=== PATIENT | male | born 1945 | race Caucasian/White ===

== ENCOUNTER 2021-06-16 17:44 | Emergency (ER) | payer MEDICARE, OTHER ==
[~2021-06-16] VITALS: Ht 180.3 cm; Wt 80.4 kg
[2021-06-16 18:02] VITALS: BP 118/71
[2021-06-16 18:39] LABS: BASO % 1 % (0-3); EOS % 0 % (0-3); HEMATOCRIT 47.3 % (39.0-53.0); HEMOGLOBIN 15.8 g/dL (13.0-17.5); LYMPH # 0.9 x10^3/uL (1.0-4.8); LYMPH % 18 % (24-48); MEAN CORPUSCULAR HEMOGLOBIN 32 pg (25-35); MEAN CORPUSCULAR HGB CONC 33 g/dL (31-37); MEAN CORPUSCULAR VOLUME 95 fL (79-100); MONO # 0.5 x10^3/uL (0.0-1.1); MONO % 10 % (0-9); NEUT # 3.6 x10^3uL (1.8-7.7); NEUT % 72 % (31-73); PLATELET COUNT 119 x10^3/uL (140-400); RED BLOOD COUNT 4.98 x10^6/uL (4.30-5.70); RED CELL DISTRIBUTION WIDTH 13.6 % (11.5-14.5)
[2021-06-16 18:41] LABS: CALCIUM 8.1 mg/dL (8.5-10.1); CREATININE 1.3 mg/dL (0.7-1.3); POTASSIUM 4.2 mmol/L (3.5-5.1)
[2021-06-16 18:47] LABS: ALBUMIN 3.2 g/dL (3.4-5.0); ALBUMIN/GLOBULIN RATIO 0.9 (1.0-1.7); TOTAL BILIRUBIN 0.4 mg/dL (0.2-1.0); TOTAL PROTEIN 6.6 g/dL (6.4-8.2)
--- NOTE | 2021-06-16 18:51 | RAD ---
AP chest. HISTORY: Cough AP view was taken of the chest. Heart is normal in size. There is no pleural effusion. There is a sug gestion of a slight right upper lobe infiltrate. No other definite infiltrates are noted. IMPRESSION: 1. Slight right upper lobe infiltrate. Electronically signed by: Trever León MD (06/16/2021 6:49 PM) [facility]
--- NOTE | 2021-06-16 21:45 | PHYS DOC ---
Past History Past Surgical History: No Surgical History General Adult EDM: Chief Complaint: FATIGUE HPI: HPI: ".. I was diagnosis of COVID on Monday.. had felt bad on .. but the problem is I can't force myself to drink... I was thinking I needed some IV fluids.. My a nurse.. she told me to come. .. in. " ".. I ve been here 5 hrs just waiting to get back to this room... " Patient is a 76 year old male retired who presents with complaints of malaise, myalgia and arthralgia since . Patient had refused to get COVID vaccination. Patient's denies any shortness of breath or chest pain. Denies any loss of taste or smell. His main complaint is the feels like he does not want to drink fluids. Patient sats were normal range on walking to [employer] Pt. denies and fever or chills currently. Does have a nagging cough. C/o fatigue. Review of Systems: Review of Systems: Constitutional: History fever or chills which now resolved Eyes: Denies change in visual acuity HENT: Some history of nasal congestion now resolved Respiratory: Some history of cough now resolved, denies shortness of breath Cardiovascular: Denies chest pain or edema GI: Denies abdominal pain, nausea, vomiting, bloody stools or diarrhea : Denies dysuria Musculoskeletal: Some history of malaise myalgia arthralgia currently resolved Integument: Denies rash Neurologic: Denies headache, focal weakness or sensory changes Endocrine: Denies polyuria or polydipsia Lymphatic: Denies swollen glands Psychiatric: Denies depression or anxiety Family History: Family History: Noncontributory to presentation Current Medications: Current Meds: See nursing for home meds Allergies: Allergies: Allergies Coded Allergies Type Severity Reaction Last Updated Verified No Known Drug Allergies 06/16/21 No Physical Exam: PE: Constitutional: Well developed, well nourished, no acute distress, non-toxic singh earance. [] HENT: Normocephalic, atraumatic, bilateral external ears normal, oropharynx moist, no oral exudates, nose normal. [] Eyes: PERRLA, EOMI, conjunctiva normal, no discharge. [] Neck: Normal range of motion, no tenderness, supple, no stridor. [] Cardiovascular:Heart rate regular rhythm, no murmur [] Lungs & Thorax: Bilateral breath sounds equal apex with some right upper lobe crackles on auscultation [] Abdomen: Bowel sounds normal, soft, no tenderness, no masses, no pulsatile masses. [] Skin: Warm, dry, no erythema, no rash. [] Back: No tenderness, no CVA tenderness. [] Extremities: No tenderness, no cyanosis, no clubbing, ROM intact, no edema. [] Neurologic: Alert and oriented X 3, normal motor function, normal sensory function, no focal deficits noted. [] Psychologic: Affect anxious, judgement normal, mood normal. [] Current Patient Data: Labs: Laboratory Tests Test 06/16/21 18:12 White Blood Count 5.0 x10^3/uL (4.0-11.0) Red Blood Count 4.98 x10^6/uL (4.30-5.70) Hemoglobin 15.8 g/dL (13.0-17.5) Hematocrit 47.3 % (39.0-53.0) Mean Corpuscular Volume 95 fL (79-100) Mean Corpuscular Hemoglobin 32 pg (25-35) Mean Corpuscular Hemoglobin Concent 33 g/dL (31-37) Red Cell Distribution Width 13.6 % (11.5-14.5) Platelet Count 119 x10^3/uL (140-400) L Neutrophils (%) (Auto) 72 % (31-73) Lymphocytes (%) (Auto) 18 % (24-48) L Monocytes (%) (Auto) 10 % (0-9) H Eosinophils (%) (Auto) 0 % (0-3) Basophils (%) (Auto) 1 % (0-3) Neutrophils # (Auto) 3.6 x10^3uL (1.8-7.7) Lymphocytes # (Auto) 0.9 x10^3/uL (1.0-4.8) L Monocytes # (Auto) 0.5 x10^3/uL (0.0-1.1) Eosinophils # (Auto) 0.0 x10^3/uL (0.0-0.7) Basophils # (Auto) 0.0 x10^3/uL (0.0-0.2) Sodium Level 136 mmol/L (136-145) Potassium Level 4.2 mmol/L (3.5-5.1) Chloride Level 101 mmol/L (98-107) Carbon Dioxide Level 23 mmol/L (21-32) Anion Gap 12 (6-14) Blood Urea Nitrogen 18 mg/dL (8-26) Creatinine 1.3 mg/dL (0.7-1.3) Estimated GFR (Cockcroft-Gault) 54.0 BUN/Creatinine Ratio 14 (6-20) Glucose Level 95 mg/dL (70-99) Calcium Level 8.1 mg/dL (8.5-10.1) L Total Bilirubin 0.4 mg/dL (0.2-1.0) Aspartate Amino Transferase (AST) 27 U/L (15-37) Alanine Aminotransferase (ALT) 19 U/L (16-63) Alkaline Phosphatase 64 U/L (46-116) Total Protein 6.6 g/dL (6.4-8.2) Albumin 3.2 g/dL (3.4-5.0) L Albumin/Globulin Ratio 0.9 (1.0-1.7) L Vital Signs: Vital Signs Date Time Temp Pulse Resp B/P (MAP) Pulse Ox O2 Delivery O2 Flow Rate FiO2 06/16/21 21:24 78 96 06/16/21 18:02 98.5 16 Room Air EKG: EKG: [] Radiology/Procedures: Radiology/Procedures: [][place] [address] IMAGING REPORT Signed PATIENT: LOUIE SOTELO ACCOUNT: [id number] : 1945 LOCATION: ER AGE: 76 SEX: M EXAM STATUS: REG ER ORD. PHYSICIAN: MICHAELA KENDALL MD REASON: cough PROCEDURE: CHEST AP ONLY AP chest. HISTORY: Cough AP view was taken of the chest. Heart is normal in size. There is no pleural effusion. There is a suggestion of a slight right upper lobe infiltrate. No o ther definite infiltrates are noted. IMPRESSION: 1. Slight right upper lobe infiltrate. Electronically signed by: Trever León MD (06/16/2021 6:49 PM) [facility] DICTATED AND SIGNED BY: TREVER LEÓN MD DATE: 06/16/211847 CC: MICHAELA KENDALL MD; EMERGENCY,DEPARTMENT; NARESH GOMEZ MD ~MTH0 0 Heart Score: C/O Chest Pain: N/A Risk Factors: Risk Factors: DM, Current or recent (<one month) smoker, HTN, HLP, family history of CAD, obesity. Risk Scores: Score 0 - 3: 2.5% MACE over next 6 weeks - Discharge Home Score 4 - 6: 20.3% MACE over next 6 weeks - Admit for Clinical Observation Score 7 - 10: 72.7% MACE over next 6 weeks - Early Invasive Strategies Course & Med Decision Making: Course & Med Decision Making Pertinent Labs and Imaging studies reviewed. (See chart for details) Pt. to use MDI two puffs four times a day. Push fluids- Fruit juices, 7-up , Gatorade, Pedialyte, clear juices such as apple and grape. Take a Zithromax 250 a day. Follow-up primary care. If become dyspneic get home sat monitor make sure her oxygen she did not drop below 90% consistently. If oxygen drops below 90% will need home oxygen. Follow-up primary care. Return if any concerns. Note patient-did not want to wait for his antibiotics, MDI, or discharge instructions. Left without meds or breathing treatment Impression: 1. COVID Infection - Since 06/11/2021 2. COVID pneumonia - Rt. upper lobe Note Loss of dictation- [id number] [] Marlon Disclaimer: Marlon Disclaimer: This electronic medical record was generated, in whole or in part, using a voice recognition dictation system. Departure Departure: Referrals: NARESH GOMEZ MD (PCP) Scripts Albuterol Sulfate (VENTOLIN HFA INHALER) 18 Gm Hfa.aer.ad 2 PUFF IH PRN Q4HRS PRN for FOR ASTHMA, #1 EACH 0 Refills Prov: MICHAELA KENDALL MD 06/16/21 Azithromycin (ZITHROMAX) 250 Mg Tablet 250 MG PO DAILY for ANTI-BIOTIC for 5 Days, #5 TAB 0 Refills Prov: MICHAELA KENDALL MD 06/16/21 Dragon Disclaimer This chart was dictated in whole or in part using Voice Recognition software in a busy, high-work load, and often noisy Emergency Department environment. It may contain unintended and wholly unrecognized errors or omissions. MICHAELA KENDALL MD Jun 16, 2021 21:45
[2021-06-16] MEDS ORDERED: ALBUTEROL SULFATE 8GM INHALER. INH ONE (22:00)
[2021-06-16] MEDS ORDERED: AZITHROMYCIN 250 MG TABLET. PO ONE (22:00)
[2021-06-16] MEDS ORDERED: ALBU2.5V8 IH (22:08)
[2021-06-16] MEDS ORDERED: AZIT250T PO (22:08)
== END 2021-06-16 22:26 | disposition home or self-care (01) ==
LOC: ER 17:44
DX: U07.1 COVID-19 (principal); J12.82 Pneumonia due to coronavirus disease 2019
CPT/HCPCS: 36415; 71045; 80053; 85025; 94640; 99284; 94664